=== PATIENT | female | born 1960 | race Caucasian/White ===

== ENCOUNTER 2017-11-01 13:35 | Emergency (ER) | payer MEDICAID ==
[~2017-11-01] VITALS: Ht 157.5 cm; Wt 73.0 kg
[2017-11-01] MEDS ORDERED: [UNRECOGNIZED DRUG - REMARK] (13:48)
--- NOTE | 2017-11-01 14:15 | NUR ---
Soial worker Elbert called to see patient. Pt. verbalized been unable to deal with stress and emotions due to her mother's condition.
[2017-11-01 14:24] LABS: BASOPHILS % (AUTO) 0.4 % (0.0-2.0); EOSINOPHILS # (AUTO) 0.1 K/uL (0.0-0.7); EOSINOPHILS % (AUTO) 1.4 % (0.0-7.0); HEMATOCRIT 36.1 % (31.2-41.9); HEMOGLOBIN 12.4 g/dL (10.9-14.3); LYMPHOCYTES # (AUTO) 2.5 K/uL (20.0-40.0); MEAN CORPUSCULAR HEMOGLOBIN 30.5 uug (24.7-32.8); MEAN CORPUSCULAR HGB CONC 34 g/dL (32.3-35.6); MONOCYTES # (AUTO) 0.3 K/uL (2.0-10.0); MONOCYTES % (AUTO) 4.8 % (0.0-11.0); NEUTROPHILS # (AUTO) 3.5 K/uL (1.8-8.9); NEUTROPHILS % (AUTO) 54.4 % (38.5-71.5); PLATELET COUNT (AUTO) 206 K/uL (179-408); RED BLOOD CELL COUNT(AUTO) 4.05 MIL/uL (3.63-4.92); WHITE BLOOD COUNT (AUTO) 6.4 K/uL (3.8-11.8)
--- NOTE | 2017-11-01 14:25 | NUR ---
plant care worker at bedside.
[2017-11-01 14:29] LABS: CREATININE 0.5 mg/dL (0.6-1.3)
--- NOTE | 2017-11-01 15:12 | NUR ---
2:10pm: SW called to the ED by MAYRA Shultz. SW arrived to ED and consulted with MAYRA Shultz and Dr. Grant. SW then met with patient. Patient is a 57 year old Arabic female; lives at home with her and children (2 boys and 1 daughter). Patient was in her assigned ED room when SW met with her. Patient was receptive to meeting with SW. Patient is alert, oriented, cooperative. Patient stated that she was brought into the ED today by paramedics after having feelings of lightheadedness, chest pressure, agitation, and shortness of breath this morning while at work. Patient stated that she was currently feeling very weak and that her head "felt heavy", but that the chest pressure had diminished. Patient reported that her mother was admitted to the hospital 3 days ago for heart problems, and she was feeling stressed because of that. 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 SW explored history of heart problems and anxiety problems with patient, and patient reported that both her father and her mother suffered from heart problems. Patient stated not having any heart problems, but that when her father 16 years ago she had difficulty adjusting to the loss and therefore her doctor started her on Zoloft. Patient stated that she had been taking Zoloft for the past 16 years, and suddenly stopped it about 1 month ago when she went on vacation. Patient stated she did not mention to Dr. Grant that she had been using Zoloft and that she stopped taking the medication, and therefore SW informed Dr. Grant about patient history with Zoloft and that she suddenly stopped taking the medication about 1 month ago. SW provided patient with psychoeducation on anxiety/depression, and the suggested ways that SSRI's should be used and/or discontinued. Patient was receptive to the information that the SW provided, and expressed that she probably needs to restart the medication again. SW suggested for patient to discuss this with her doctor. Patient stated that she has an appointment with her PCP this week, Dr. Gerald Ross, and that she was going to discuss with him the restarting of the medication. SW explored the need for a psychiatrist, and patient stated that she does not feel the need to see a psychiatrist and that her PCP usually manages her medications. Patient maintained appropriate eye contact during the interview, affect was appropriate, presented with good insight, thought process was intact. No SI or HI present. SW assisted patient with using the hospital phone to call her daughter, since patient did not have her belongings with her. Patient thanked MICHEL for her time and support. MICHEL followed up with Dr. Grant and MAYRA Shultz and discussed above with both of them. No further interventions needed at this time by MICHEL.
--- NOTE | 2017-11-01 15:15 | NUR ---
Hr 66, 98% Ra. sbp 112/65. RR 18. no c/of pain.
--- NOTE | 2017-11-01 17:36 | NUR ---
97.6 temp., Hr 62, rr 18 , Sat 96%, sbp 113/65. pt. aaox 4. daughter at bedside.
--- NOTE | 2017-11-01 18:00 | NUR ---
DCD instructions given to patient, who verbalized understanding. Patient left room ambulatory with steady gait. AAOX4. VSS. no c/of pain accompanied by daughter.
== END 2017-11-01 18:05 | disposition home or self-care (01) ==
LOC: ER 13:35
DX: R10.13 Epigastric pain (principal); R51 Headache; F41.9 Anxiety disorder, unspecified; E78.5 Hyperlipidemia, unspecified
CPT/HCPCS: 36415; 71045; 80048; 83690; 84484 ×2; 85025; 93005 ×2; 99285; A4663; 70030-TC